=== PATIENT | male | born 1935 | race Caucasian/White ===

== ENCOUNTER → 2016-06-06 | Outpatient (CLI) | payer MEDICARE ==
[2016-06-06 09:46] LABS: CH 31.7; CHCM 30.9; HCT 42.6 % (39.0-53.0); HDW 2.21; HGB 13.2 gm/dL (13.0-17.5); Hypochromasia Slight; MCV 103.1 fL (80.0-100.0); Macrocytosis Slight; Mean Platelet Volume 6.9; RBC 4.14 m/uL (4.30-5.90); RDW 13.3 % (11.5-15.5)
--- NOTE | 2016-06-06 10:13 | XR ---
EXAMINATION TYPE: XR chest 2V DATE OF EXAM: 06/06/2016 9:24 AM COMPARISON: 12/10/2015 TECHNIQUE: PA and lateral views submitted. HISTORY: Wellness check FINDINGS: The lungs are clear and there is no pneumothorax, pleural effusion, or focal pneumonia. Sternotomy wires seen. Atherosclerotic change aorta. Biapical pleural thickening. Scoliosis and degenerative kira nge of the spine. Arthropathy of the shoulders. IMPRESSION: 1. No acute process.
[2016-06-06 10:36] LABS: Appearance,Urine Clear (Clear); Bilirubin,Urine Negative (Negative); Glucose,Urine (UA) Negative (Negative); Ketones,Urine Negative (Negative); Leukocyte Esterase,Urine Negative (Negative); Nitrite,Urine Negative (Negative); Protein,Urine Trace (Negative); Specific Gravity,Urine 1.019 (1.001-1.035); UA Billing (MACRO vs. MICRO) CHEM; Urobilinogen,Urine <2.0 mg/dL (<2.0)
[2016-06-06 12:10] LABS: ALT 36 U/L (21-72); AST 31 U/L (17-59); Alkaline Phosphatase 51 U/L (38-126); Anion Gap 8 mmol/L; Blood Urea Nitrogen 28 mg/dL (9-20); Calcium 9.5 mg/dL (8.4-10.2); Carbon Dioxide 27 mmol/L (22-30); Chloride 104 mmol/L (98-107); Cholesterol 137 mg/dL (<200); Glucose 86 mg/dL (74-99); HDL Cholesterol 70 mg/dL (40-60); Non-African American GFR(MDRD) >60 (>60 ml/min/1.73 sqM); Potassium 4.4 mmol/L (3.5-5.1); Sodium 139 mmol/L (137-145); Total Bilirubin 0.7 mg/dL (0.2-1.3); Total Protein 6.3 g/dL (6.3-8.2); Triglycerides 58 mg/dL (<150)
== END | disposition home or self-care (01) ==
LOC: LABWHC1 08:52
PROVIDERS: ATTEND Internal Medicine
DX: Z00.00 Encounter for general adult medical examination without abnormal findings (principal); I11.9 Hypertensive heart disease without heart failure; K21.0 Gastro-esophageal reflux disease with esophagitis; E03.9 Hypothyroidism, unspecified
CPT/HCPCS: 36415; 71020; 80053; 80061; 81003; 82272; 84439; 84443; 85027

== ENCOUNTER → 2016-06-24 | Outpatient (CLI) | payer MEDICARE | END | disposition home or self-care (01) | LOC: LABWHC1 10:24 | PROVIDERS: ATTEND Internal Medicine Interventional Cardiology | DX: E03.9 Hypothyroidism, unspecified (principal) | CPT/HCPCS: 36415; 84439; 84443 ==

== ENCOUNTER 2016-10-06 18:14 | Emergency (ER) | payer MEDICARE ==
[2016-10-06 18:27] VITALS: BP 161/70; PULSE 78; RESP 20; TEMP 98.2
--- NOTE | 2016-10-06 18:54 | ED ---
General Adult HPI - General Chief complaint: Skin/Abscess/Foreign Body Stated complaint: post op bleed head Time Seen by Provider: 10/06/16 18:28 Source: patient, RN notes reviewed Mode of arrival: wheelchair Limitations: no limitations - History of Present Illness Initial comments: 81-year-old male presents to the emergency department with a chief complaint of bleeding wound. The patient had a mole removed left-sided his face about a week ago and today he felt some blood on his bleeding. He stated he put bandage on it the did not feels if he stops they came in. At this time they state does appear that has stopped. He denies any falls traumas or injuries. Denies any pain. He was concerned due to the intensity thought that he should be seen.Patient denies any recent fever, chills, shortness of breath, chest pain , back pain, abdominal pain, nausea vomiting, numbness or tingling, dysuria or hematuria, constipation or diarrhea, headaches or visual changes, or any other current symptoms. - Related Data Home Medications Medication Instructions Recorded Confirmed Atorvastatin [Lipitor] 20 mg PO DAILY 09/08/15 10/06/16 Calcium Carb/Vitamin D3/Vit K1 1 tab PO BID 09/08/15 10/06/16 [Citracal Soft Chew] Cyanocobalamin [Vitamin B-12] 1,000 mcg PO DAILY 09/08/15 10/06/16 Ezetimibe [Zetia] 10 mg PO DAILY 09/08/15 10/06/16 Folic Acid 0.4 mg PO DAILY 09/08/15 10/06/16 Glucosam/Ender-Msm1/C/Beni/Bosw 1 tab PO DAILY 09/08/15 10/06/16 [Glucosamine-Chondroitin Tablet] Metoprolol Tartrate [Metoprolol 25 mg PO BID 09/08/15 10/06/16 Tartrate] Omeprazole [Omeprazole] 20 mg PO BID 09/08/15 10/06/16 Acetaminophen [Tylenol] 1,000 mg PO BID 12/10/15 10/06/16 Amiodarone [Cordarone] 200 mg PO DAILY 12/10/15 10/06/16 Aspirin [Adult Low Dose Aspirin EC] 81 mg PO DAILY 12/10/15 10/06/16 Donepezil [Aricept] 10 mg PO HS 12/10/15 10/06/16 Ferrous Sulfate [Feosol] 325 mg PO DAILY 12/10/15 10/06/16 Vitamin B Complex 1 cap PO DAILY 12/10/15 10/06/16 Previous Rx's Medication Instructions Recorded Apixaban [Eliquis] 2.5 mg PO BID #60 tab 09/22/15 Allergies Allergy/AdvReac Type Severity Reaction Status Date / Time No Known Allergies Allergy Verified 10/06/16 18:27 Review of Systems ROS Statement: Those systems with pertinent positive or pertinent negative responses have been documented in the HPI. ROS Other: All systems not noted in ROS Statement are negative. Past Medical History Past Medical History: Atrial Fibrillation, CVA/TIA, Hyperlipidemia, Hypertension , Myocardial Infarction ([place]) Additional Past Medical History / Comment(s): VSD - open heart surgery 2000, diverticular disease Last Myocardial Infarction Date:: 2000 History of Any Multi-Drug Resistant Organisms: None Reported Past Surgical History: Prostate Surgery Additional Past Surgical History / Comment(s): bilat. cataract surgery, partial prostate removal, hemorrhoidectomy, penile implant Past Anesthesia/Blood Transfusion Reactions: No Reported Reaction Past Psychological History: No Psychological Hx Reported Smoking Status: Former smoker Past Alcohol Use History: None Reported Past Drug Use History: None Reported General Exam Limitations: no limitations General appearance: alert, in no apparent distress Head exam: Present: other (This appears to area of recent removal of the left side of the cheek that does not appear to be bleeding at this time.) Eye exam: Present: normal appearance, PERRL, EOMI. Absent: scleral icterus, conjunctival injection, periorbital swelling Neck exam: Present: normal inspection. Absent: tenderness, meningismus, lymphadenopathy Respiratory exam: Present: normal lung sounds bilaterally. Absent: respiratory distress, wheezes, rales, rhonchi, stridor Cardiovascular Exam: Present: regular rate, normal rhythm, normal heart sounds. Absent: systolic murmur, diastolic murmur, rubs, gallop, clicks Neurological exam: Present: alert, oriented X3 Course Vital Signs 10/06/16 18:25 Temperature 98.2 F Pulse Rate 78 Respiratory 20 Rate Blood Pressure 161/70 O2 Sat by Pulse 98 Oximetry Medical Decision Making - Medical Decision Making 6-year-old male presents for wound left-sided face. At this time it has stopped bleeding. We discussed care of this. We discussed follow-up. We discussed return for hours all patient's questions. He stated he understood and he is given plan. All questions have been answered. He will be discharged home. Disposition Clinical Impression: Open facial wound Disposition: HOME SELF-CARE Condition: Stable Instructions: Acute Wound Care (ED) Additional Instructions: Please use medication as discussed. Please follow up with family doctor if symptoms have not improved over the next two days. Please return to the emergency room if your symptoms increase or worsen or for any other concerns. Referrals: Taco Matute MD [Primary Care Provider] - 1-2 days Time of Disposition: 18:53
== END 2016-10-06 19:07 | disposition home or self-care (01) ==
LOC: EC 18:14
DX: S01.402A Unspecified open wound of left cheek and temporomandibular area, initial encounter (principal); E78.5 Hyperlipidemia, unspecified; I10 Essential (primary) hypertension; I48.91 Unspecified atrial fibrillation; I25.2 Old myocardial infarction; Z87.891 Personal history of nicotine dependence; Z79.82 Long term (current) use of aspirin; Z79.899 Other long term (current) drug therapy; Z87.19 Personal history of other diseases of the digestive system; Z98.890 Other specified postprocedural states; X58.XXXA Exposure to other specified factors, initial encounter
CPT/HCPCS: 99283

== ENCOUNTER → 2017-07-24 | Outpatient (CLI) | payer MEDICARE ==
[2017-07-24 08:50] LABS: HGB 13.6 gm/dL (13.0-17.5); MCH 31.7 pg (25.0-35.0); MCHC 31.7 g/dL (31.0-37.0); MCV 100.1 fL (80.0-100.0); Mean Platelet Volume 6.9; Platelet Count 213 k/uL (150-450); RDW 13.3 % (11.5-15.5); WBC 6.8 k/uL (3.8-10.6)
[2017-07-24 09:02] LABS: ALT 36 U/L (21-72); AST 31 U/L (17-59); Albumin 3.9 g/dL (3.5-5.0); Alkaline Phosphatase 47 U/L (38-126); Anion Gap 10 mmol/L; Blood Urea Nitrogen 22 mg/dL (9-20); Calcium 9.2 mg/dL (8.4-10.2); Carbon Dioxide 28 mmol/L (22-30); Chloride 104 mmol/L (98-107); Cholesterol 149 mg/dL (<200); Glucose 93 mg/dL (74-99); HDL Cholesterol 68 mg/dL (40-60); LDL Cholesterol,Calculated 70 mg/dL (0-99); Potassium 4.4 mmol/L (3.5-5.1); Sodium 142 mmol/L (137-145); Total Bilirubin 0.9 mg/dL (0.2-1.3); Total Protein 6.2 g/dL (6.3-8.2); Triglycerides 55 mg/dL (<150)
[2017-07-24 09:17] LABS: T4, Free (Free Thyroxine) 1.83 ng/dL (0.78-2.19)
== END | disposition home or self-care (01) ==
LOC: LABWHC1 08:13
PROVIDERS: ATTEND Internal Medicine
DX: I25.10 Atherosclerotic heart disease of native coronary artery without angina pectoris (principal); I48.0 Paroxysmal atrial fibrillation; E78.2 Mixed hyperlipidemia; I11.9 Hypertensive heart disease without heart failure
CPT/HCPCS: 36415; 80053; 80061; 84439; 84443; 85027

== ENCOUNTER → 2017-07-30 | Outpatient (CLI) | payer MEDICARE ==
--- NOTE | 2017-07-30 11:40 | XR ---
EXAMINATION TYPE: XR chest 2V DATE OF EXAM: 07/30/2017 COMPARISON: 06/06/2016 TECHNIQUE: PA and lateral views submitted. HISTORY: Cough FINDINGS: Heart is enlarged and is atherosclerotic change aorta. Postsurgical changes are seen. There is a righ t upper lobe pulmonary nodule measuring 9 mm. Hyperinflation suggests COPD. Hypertrophic and degenera tive change of the spine noted. Atherosclerotic change of the vasculature. Patchy changes in the righ t upper lobe are noted. IMPRESSION: 1. Cardiomegaly and findings suggestive of COPD. There is a right upper lobe pulmonary nodule measuri ng 9 mm which is stable dating back to 2015. 2. There is patchy density in the right upper lobe and superior to the nodule could represent atelect asis or early infiltrate.
== END | disposition home or self-care (01) ==
LOC: RADXRMAIN 11:06
PROVIDERS: ATTEND Internal Medicine
DX: I51.7 Cardiomegaly (principal); R91.1 Solitary pulmonary nodule; R91.8 Other nonspecific abnormal finding of lung field; R05 Cough
CPT/HCPCS: 71046

== ENCOUNTER → 2018-07-27 | Outpatient (CLI) | payer MEDICARE ==
[2018-07-27 09:19] LABS: HCT 43.7 % (39.0-53.0); HGB 13.3 gm/dL (13.0-17.5); Hypochromasia Slight; MCH 30.7 pg (25.0-35.0); MCHC 30.5 g/dL (31.0-37.0); MCV 100.6 fL (80.0-100.0); Mean Platelet Volume 7.6; Platelet Count 270 k/uL (150-450); RBC 4.35 m/uL (4.30-5.90); RDW 12.9 % (11.5-15.5); WBC 5.6 k/uL (3.8-10.6)
--- NOTE | 2018-07-27 09:47 | XR ---
EXAMINATION TYPE: XR chest 2V DATE OF EXAM: 07/27/2018 COMPARISON: Prior chest x-ray 07/30/[address] dated 09/13/2010 HISTORY: Yearly physical TECHNIQUE: Frontal and lateral views of the chest are obtained. FINDINGS: Patient is post median sternotomy. Heart size is stable. No evident airspace disease, pneu mothorax, or pleural effusion. Elevation of right hemidiaphragm is stable. There is a stable nodular density in the right mid lung. Pulmonary vascularity and ashish are unchanged. There are coronary arter y calcifications. Aorta is dense. There are prominent lung volumes which may be indicative of underly ing COPD. IMPRESSION: No acute cardiopulmonary process. Stable lung nodule. Coronary artery disease.
[2018-07-27 16:36] LABS: ALT 26 U/L (10-49); AST 30 U/L (14-35); African American GFR (CKD) 89.9 (60.0-200.0); Albumin/Globulin Ratio 2.35 (1.60-3.17); Alkaline Phosphatase 46 U/L (41-126); Calcium 9.5 mg/dL (8.7-10.3); Carbon Dioxide 28.9 mmol/L (21.6-31.8); Chloride 106 mmol/L (96-109); Cholesterol 140 mg/dL (0-200); Globulin 1.7 g/dL (1.6-3.3); Glucose 89 mg/dL (70-110); Potassium 4.7 mmol/L (3.5-5.5); Sodium 141 mmol/L (135-145); Total Bilirubin 0.6 mg/dL (0.2-1.2); Total Protein 5.7 g/dL (6.2-8.2); Triglycerides <50.0 mg/dL (0.0-149.0); VLDL Calculation 9.98 mg/dL (5.00-40.00)
== END | disposition home or self-care (01) ==
LOC: LABWHC1 08:25
PROVIDERS: ATTEND Internal Medicine
DX: Z00.00 Encounter for general adult medical examination without abnormal findings (principal); I25.10 Atherosclerotic heart disease of native coronary artery without angina pectoris; I11.9 Hypertensive heart disease without heart failure; E78.2 Mixed hyperlipidemia; K21.0 Gastro-esophageal reflux disease with esophagitis; N40.1 Benign prostatic hyperplasia with lower urinary tract symptoms
CPT/HCPCS: 36415; 71046; 80053; 80061; 82272; 84153; 84439; 84443; 85027

== ENCOUNTER → 2019-11-12 | Outpatient (CLI) | payer MEDICARE ==
--- NOTE | 2019-11-12 12:42 | US ---
EXAMINATION TYPE: US abdomen complete DATE OF EXAM: 11/12/2019 COMPARISON: CLINICAL HISTORY: Z13.6 Encounter for screening for cardiovascular d. No reports no pain. No hx surg eries per patient. NPO. EXAM MEASUREMENTS: Liver Length: 13.1 cm Gallbladder Wall: 0.2 cm CBD: 0.5 cm Spleen: 7.7 cm Right Kidney: 8.9 x 5.2 x 5.1 cm Left Kidney: 9.5 x 5.0 x 5.2 cm Suboptimal exam due to overlying bowel gas Pancreas: Obscured by bowel gas Liver: wnl, scanned through ribs Gallbladder: wnl Evidence for sonographic Weathers's sign: neg CBD: wnl Spleen: limited visualization due to bowel gas Right Kidney: No hydronephrosis or masses seen Left Kidney: No hydronephrosis or masses seen Upper IVC: wnl Abd Aorta: Portions obscured by overlying bowel gas. No AAA seen in portions visualized. The liver is homogenous. The intrahepatic portion of the IVC and proximal abdominal aorta are within normal limits. There is no evidence of cholelithiasis. Common bile duct is unremarkable. The visu alized portions of the pancreas are homogenous. The spleen is unremarkable. Kidneys are symmetric a nd free of hydronephrosis. No renal lesions are seen. IMPRESSION: No distinct abnormality appreciated.
== END | disposition home or self-care (01) ==
LOC: RADUSWWP 12:02
PROVIDERS: ATTEND Internal Medicine
DX: Z13.6 Encounter for screening for cardiovascular disorders (principal)
CPT/HCPCS: 76700

== ENCOUNTER 2020-08-29 10:44 | Observation (INO) | payer MEDICARE ==
--- NOTE | 2020-08-29 11:23 | ED ---
Chest Pain HPI - General Chief Complaint: Chest Pain Stated Complaint: Chest Pain Time Seen by Provider: 08/29/20 11:02 Source: patient, family, RN notes reviewed Mode of arrival: wheelchair Limitations: no limitations - History of Present Illness Initial Comments: This 85-year-old male with a history of dementia history of VSD repair who is a poor historian but apparently started developing chest pain around 10 AM this morning while playing cards at program. He is not recall any of this he states he has no chest pain at this time he hasn't was however noted have a heart rate between 30s and 40s. No other complaints at this time he is not apparently had a chest pain recently. Information obtained to the patient's . MD Complaint: chest pain - Related Data Home Medications Medication Instructions Recorded Confirmed Atorvastatin [Lipitor] 20 mg PO DAILY 09/08/15 08/29/20 Cyanocobalamin [Vitamin B-12] 1,000 mcg PO Q7D 09/08/15 08/29/20 Ezetimibe [Zetia] 10 mg PO DAILY 09/08/15 08/29/20 Folic Acid 0.4 mg PO DAILY 09/08/15 08/29/20 Acetaminophen [Tylenol] 500 mg PO BID 12/10/15 08/29/20 Donepezil [Aricept] 10 mg PO AC-SUPPER 12/10/15 08/29/20 Ferrous Sulfate [Feosol] 325 mg PO AC-SUPPER 12/10/15 08/29/20 Vitamin B Complex 1 cap PO DAILY 12/10/15 08/29/20 Ginkgo Biloba 500 mg PO DAILY 08/29/20 08/29/20 Memantine HCl 10 mg PO BID 08/29/20 08/29/20 Metoprolol Tartrate [Lopressor] 25 mg PO DAILY 08/29/20 08/29/20 Mirabegron [Myrbetriq] 50 mg PO DAILY 08/29/20 08/29/20 Moxifloxacin HCl [Moxifloxacin] 1 drop BOTH EYES TID 08/29/20 08/29/20 Omeprazole [PriLOSEC] 40 mg PO MOWEFR 08/29/20 08/29/20 Previous Rx's Medication Instructions Recorded Apixaban [Eliquis] 2.5 mg PO BID #60 tab 08/12/16 Allergies Allergy/AdvReac Type Severity Reaction Status Date / Time No Known Allergies Allergy Verified 08/29/20 11:41 Review of Systems ROS Statement: Those systems with pertinent positive or pertinent negative responses have been documented in the HPI. ROS Other: All systems not noted in ROS Statement are negative. EKG Findings - EKG Results: EKG: interpreted by JOSIE, sinus rhythm (Sinus bradycardia rate 49 TX interval 208 QRS 88 QT/QTC 462/417 evidence of old inferior infarct nonspecific ST-T wave configuration) Past Medical History Past Medical History: Atrial Fibrillation, CVA/TIA, Hyperlipidemia, Hypertension, Myocardial Infarction ([place]) Additional Past Medical History / Comment(s): VSD - open heart surgery 2000, diverticular disease Last Myocardial Infarction Date:: 2000 History of Any Multi-Drug Resistant Organisms: None Reported Past Surgical History: Prostate Surgery Additional Past Surgical History / Comment(s): bilat. cataract surgery, partial prostate removal, hemorrhoidectomy, penile implant Past Anesthesia/Blood Transfusion Reactions: No Reported Reaction Past Psychological History: No Psychological Hx Reported Smoking Status: Never smoker Past Alcohol Use History: None Reported Past Drug Use History: None Reported General Exam - General Exam Comments Initial Comments: Is a well-developed asthenic appearing male who is awake alert Limitations: no limitations General appearance: alert, in no apparent distress Head exam: Present: atraumatic, normocephalic, normal inspection Eye exam: Present: normal appearance, PERRL, EOMI. Absent: scleral icterus, conjunctival injection, periorbital swelling ENT exam: Present: normal exam, mucous membranes moist Neck exam: Present: normal inspection. Absent: tenderness, meningismus, lymphadenopathy Respiratory exam: Present: normal lung sounds bilaterally, other (Mr. Horan scar well-healed). Absent: respiratory distress, wheezes, rales, rhonchi, stridor Cardiovascular Exam: Present: normal rhythm, bradycardia, normal heart sounds. Absent: systolic murmur, diastolic murmur, rubs, gallop, clicks GI/Abdominal exam: Present: soft, normal bowel sounds. Absent: distended, tenderness, guarding, rebound, rigid Extremities exam: Present: normal inspection, full ROM, normal capillary refill. Absent: tenderness, pedal edema, joint swelling, calf tenderness Back exam: Present: normal inspection Neurological exam: Present: alert, altered, CN II-XII intact Psychiatric exam: Present: normal affect, normal mood Skin exam: Present: warm, dry, intact, normal color. Absent: rash Course Vital Signs 08/29/20 08/29/20 08/29/20 10:47 11:59 12:18 Temperature 97.5 F L Pulse Rate 46 L 52 L 53 L Respiratory 18 18 20 Rate Blood Pressure 129/67 112/55 126/62 O2 Sat by Pulse 98 95 96 Oximetry 08/29/20 14:00 Temperature Pulse Rate 51 L Respiratory 20 Rate Blood Pressure 151/63 O2 Sat by Pulse 99 Oximetry Chest Pain MDM - MDM Imaging reviewed no acute findings I did discuss findings with the patient and his . Patient has been asymptomatic since he arrived however the chest pain with the near syncopal episode is of concern I did discuss case with Dr. Camara the patient will be admitted with cardiology consultation Disposition Clinical Impression: Chest pain, Near syncope, Dementia Disposition: ADMITTED IP TO THIS [facility] Condition: Stable Referrals: Cristina Alonso MD [Primary Care Provider] - 1-2 days
[2020-08-29 11:24] LABS: Basophils % (A) 1 %; Eosinophils # (A) 0.2 k/uL (0-0.7); Eosinophils % (A) 3 %; HCT 42.7 % (39.0-53.0); HGB 13.5 gm/dL (13.0-17.5); Lymphocytes # (A) 2.2 k/uL (1.0-4.8); Lymphocytes % (A) 28 %; MCHC 31.7 g/dL (31.0-37.0); MCV 101.1 fL (80.0-100.0); Mean Platelet Volume 7.9; Monocytes # (A) 0.7 k/uL (0-1.0); Monocytes % (A) 9 %; Neutrophils # (A) 4.5 k/uL (1.3-7.7); Neutrophils % (A) 57 %; Platelet Count 275 k/uL (150-450); RBC 4.23 m/uL (4.30-5.90); RDW 12.2 % (11.5-15.5); WBC 7.9 k/uL (3.8-10.6)
[2020-08-29 11:44] LABS: INR 1.1 (<1.2); Partial Thromboplastin Time 24.5 sec (22.0-30.0); Prothrombin Time 11.5 sec (9.0-12.0)
[2020-08-29 11:45] LABS: Albumin 4.2 g/dL (3.5-5.0); Calcium 9.8 mg/dL (8.4-10.2); Potassium 4.4 mmol/L (3.5-5.1); Total Bilirubin 0.7 mg/dL (0.2-1.3); Total Protein 6.6 g/dL (6.3-8.2)
--- NOTE | 2020-08-29 12:26 | XR ---
EXAMINATION TYPE: XR chest 2V DATE OF EXAM: 08/29/2020 COMPARISON: Chest x-ray 07/27/2018 HISTORY: Chest pain TECHNIQUE: Frontal and lateral views of the chest are obtained. FINDINGS: There is no focal air space opacity, pleural effusion, or pneumothorax seen. The cardiac silhouette size is stable, possibly borderline enlarged. Patient is post median sternotomy. Aorta is dense. Probable calcified nodule present in the right midlung. The osseous structures are intact, po ssible spinal curvature. There are coronary artery calcifications. IMPRESSION: No acute cardiopulmonary process. Stable postop changes, cardiomegaly, coronary artery d isease.
[2020-08-29] MEDS ORDERED: NITROGLYCERIN SL TABS 0.4 MG TAB SUBLINGUAL PRN (14:18)
[2020-08-29] MEDS ORDERED: CYANOCOBALAMIN 500 MCG TAB PO SCH (14:30)
--- NOTE | 2020-08-29 14:49 | P.HPIM ---
<Anderson Downing - Last Filed: 08/29/20 16:02> History of Present Illness H&P Date: 08/29/20 History of Presenting Illness: Patient is a very pleasant 85-year-old male with a past medical history of CAD with previous LA, atrial fibrillation on anticoagulation with Eliquis, VSD with repair, hypertension, hyperlipidemia, and dementia with baseline mentation being A&O 2. Patient presented to the emergency department with a chief complaint of chest pain and possible near syncopal episode. Patient's at bedside states that her was at adult daycare/dementia center and while sitting at the table playing cards he reportedly grabbed his chest complaining of chest pain and then became very pale and did not respond. Patient's stated that staff informed her that he stayed awake throughout entire event but was not able to respond. Patient's states staff called her and she went to pick him up and brought him to the hospital for further evaluation. Patient was seen and fully evaluated in the emergency department with CBC and CMP unremarkable. Troponins 2 negative at less than 0.012. EKG showing sinus bradycardia at 49 bpm with T- wave inversion in inferior, lateral, and anterior leads I, II, aVL, aVF, V3, V4, V5, and V6 which is unchanged from previous EKG obtained on 12/10/15 with the exception of rate. Chest x-ray negative for acute cardiopulmonary process. Patient is being admitted under our services with consultation to cardiology. Upon assessment of bedside, patient resting comfortably. He currently denies having any complaints of pain or discomfort. He denies headache, lightheadedness, dizziness, chest pain, palpitations, shortness of breath, abdominal pain, nausea, vomiting, or any other complaints. Patient does not recall events. Review of systems: Pertinent positives and negatives as discussed in HPI, a complete review of systems was performed and all other systems are negative. Physical exam: Vital signs reviewed and stable. General: Nontoxic, no distress and appears stated age. Derm: Skin warm and dry, normal coloration for ethnicity. Head: Atraumatic, normocephalic and symmetric. Eyes: no lid lag and anicteric sclera Mouth: no lip lesions, mucus membranes moist Cardiovascular: regular rate and rhythm with normal S1S2, no murmur, positive posterior tibial pulses bilaterally, and cap refill < 2 seconds. Lungs: Respirations even, regular, and unlabored on room air. Lungs CTA bilaterally, no rhonchi, no rales, no wheezing, and no accessory muscle usage. Abdominal: soft, nontender to palpation, no guarding, no appreciable organomegaly Ext: ROM intact. No gross muscle atrophy, no edema, no contractures Neuro: Speech clear, face symmetrical and CN II-XII grossly intact with no noted focal neuro deficits Psych: Alert and oriented to person and place only, confused to time and situation which is baseline mentation per at bedside. Appropriate and pleasant affect. Assessment and Plan of Care: Chest pain in patient with history of CAD -Troponins 2 negative at less than 0.012. -EKG showing sinus bradycardia at 49 bpm with T-wave inversion in inferior, lateral, and anterior leads I, II, aVL, aVF, V3, V4, V5, and V6 which is unchanged from previous EKG obtained on 12/10/15 with the exception of rate. -Chest x-ray negative for acute cardiopulmonary process -Cardiology consult -Echocardiogram -Telemetry monitoring -Trend troponins -Cardiac diet -Aspirin, atorvastatin, and metoprolol -Continuation of anticoagulant with Eliquis. -Lipid profile and Hgb A1c with a.m. labs. Atrial fibrillation -Continue anticoagulation with Eliquis. Hypertension -Monitor vital signs and continue daily medication regimen with metoprolol. Hyperlipidemia -Continue daily medication regimen with atorvastatin. -Heart healthy diet Dementia -Provide safe and supportive care and redirection as needed. -Fall precautions -Continue daily medication regimen. The patient is admitted with an anticipated less than 2 midnight stay for evaluation of chest pain. Surrogate decision-maker: Patient's , Ariadne Garcia CODE STATUS: Full code DVT prophylaxis: Eliquis Discussed with: Patient, RN, and patient's at bedside. Anticipated discharge date: 1-[address]: Home A total of 45 minutes was spent on the care of this complex patient more than 50% of the time was spent in counseling and care coordination. Past Medical History Past Medical History: Atrial Fibrillation, CVA/TIA, Hyperlipidemia, Hypertension, Myocardial Infarction ([place]) Additional Past Medical History / Comment(s): VSD - open heart surgery 2000, diverticular disease Last Myocardial Infarction Date:: 2000 History of Any Multi-Drug Resistant Organisms: None Reported Past Surgical History: Prostate Surgery Additional Past Surgical History / Comment(s): bilat. cataract surgery, partial prostate removal, hemorrhoidectomy, penile implant Past Anesthesia/Blood Transfusion Reactions: No Reported Reaction Past Psychological History: No Psychological Hx Reported Smoking Status: Never smoker Past Alcohol Use History: None Reported Past Drug Use History: None Reported Medications and Allergies Home Medications Medication Instructions Recorded Confirmed Type Atorvastatin [Lipitor] 20 mg PO DAILY 09/08/15 08/29/20 History Cyanocobalamin [Vitamin B-12] 1,000 mcg PO Q7D 09/08/15 08/29/20 History Ezetimibe [Zetia] 10 mg PO DAILY 09/08/15 08/29/20 History Folic Acid 0.4 mg PO DAILY 09/08/15 08/29/20 History Apixaban [Eliquis] 2.5 mg PO BID #60 tab 09/22/15 08/29/20 Rx Acetaminophen [Tylenol] 500 mg PO BID 12/10/15 08/29/20 History Donepezil [Aricept] 10 mg PO AC-SUPPER 12/10/15 08/29/20 History Ferrous Sulfate [Feosol] 325 mg PO AC-SUPPER 12/10/15 08/29/20 History Vitamin B Complex 1 cap PO DAILY 12/10/15 08/29/20 History Ginkgo Biloba 500 mg PO DAILY 08/29/20 08/29/20 History Memantine HCl 10 mg PO BID 08/29/20 08/29/20 History Metoprolol Tartrate [Lopressor] 25 mg PO DAILY 08/29/20 08/29/20 History Mirabegron [Myrbetriq] 50 mg PO DAILY 08/29/20 08/29/20 History Moxifloxacin HCl [Moxifloxacin] 1 drop BOTH EYES TID 08/29/20 08/29/20 History Omeprazole [PriLOSEC] 40 mg PO MOWEFR 08/29/20 08/29/20 History Allergies Allergy/AdvReac Type Severity Reaction Status Date / Time No Known Allergies Allergy Verified 08/29/20 11:41 Physical Exam Vitals: Vital Signs Temp Pulse Resp BP Pulse Ox 08/29/20 14:00 51 L 20 151/63 99 08/29/20 12:18 53 L 20 126/62 96 08/29/20 11:59 52 L 18 112/55 95 08/29/20 10:47 97.5 F L 46 L 18 129/67 98 Intake and Output 08/28/20 08/29/20 08/29/20 22:59 06:59 14:59 Other: Weight 68.039 kg Results CBC & Chem 7: 08/29/20 11:12 08/29/20 11:12 Labs: Abnormal Lab Results - Last 24 Hours (Table) 08/29/20 08/29/20 Range/Units 11:12 11:12 RBC 4.23 L (4.30-5.90) m/uL MCV 101.1 H (80.0-100.0) fL BUN 21 H (9-20) mg/dL Glucose 112 H (74-99) mg/dL <Mandie Chavarria - Last Filed: 08/29/20 18:19> History of Present Illness Patient seen and examined independently. Patient was also seen by Anderson Downing NP and case was discussed. I am in agreement with subjective, physical exam, assessment and plan as written above and amended below. present at time of evaluation. Patient was undergoing echocardiogram. He typically sees Dr. NERI Tejeda is cardiology. He last saw him in May or June. He did not have any cardiac medication changes at that time. His only new medication is an eyedrop. General: [non toxic], [no distress], [appears at stated age] Derm: [warm], [dry] Head: [atraumatic], [normocephalic], [symmetric] Eyes: [EOMI], [no lid lag], [anicteric sclera] Mouth: [no lip lesion], [mucus membranes moist] Psych: Awake, appropriate affect Physical Exam Osteopathic Statement: *. No significant issues noted on an osteopathic structural exam other than those noted in the History and Physical/Consult. Vitals: Vital Signs Temp Pulse Resp BP Pulse Ox 08/29/20 15:07 98.6 F 57 L 20 151/70 97 08/29/20 14:00 51 L 20 151/63 99 08/29/20 12:18 53 L 20 126/62 96 08/29/20 11:59 52 L 18 112/55 95 08/29/20 10:47 97.5 F L 46 L 18 129/67 98 Intake and Output 08/29/20 08/29/20 08/29/20 06:59 14:59 22:59 Other: Weight 68.039 kg Results CBC & Chem 7: 08/29/20 11:12 08/29/20 11:12 Labs: Abnormal Lab Results - Last 24 Hours (Table) 08/29/20 08/29/20 Range/Units 11:12 11:12 RBC 4.23 L (4.30-5.90) m/uL MCV 101.1 H (80.0-100.0) fL BUN 21 H (9-20) mg/dL Glucose 112 H (74-99) mg/dL
[2020-08-29] MEDS ORDERED: DONEPEZIL 10 MG TAB PO SCH (17:30)
[2020-08-29] MEDS ORDERED: FERROUS SULFATE 325 MG TAB PO SCH (17:30)
--- NOTE | 2020-08-29 18:02 | ECHOF ---
Referral Reason:CP, hx of VSD with repair MEASUREMENTS -------- HEIGHT: 162.6 cm WEIGHT: 68.0 kg BP: 151/70 RVIDd: 2.9 cm (< 3.3) IVSd: 1.1 cm (0.6 - 1.1) LVIDd: 5.1 cm (3.9 - 5.3) LVPWd: 1.2 cm (0.6 - 1.1) IVSs: 1.6 cm LVIDs: 3.7 cm LVPWs: 1.7 cm LA Diam: 4.0 cm (2.7 - 3.8) Ao Diam: 3.8 cm (2.0 - 3.7) AV Cusp: 2.2 cm (1.5 - 2.6) MV EXCURSION: 13.883 mm (> 18.000) MV EF SLOPE: 48 mm/s (70 - 150) EPSS: 1.2 cm MV E Hay: 0.86 m/s MV DecT: 248 ms MV A Hay: 0.85 m/s MV E/A Ratio: 1.01 AR PHT: 491 ms RAP: 5.00 mmHg RVSP: 38.62 mmHg FINDINGS -------- Sinus rhythm. This was a technically adequate study. Suboptimal image quality - poor subcostal views. The left ventricular size is normal. There is borderline concentric left ventricular hypertrophy. Overall left ventricular systolic function is mild-moderately impaired with, an EF between 40 - 45 % . Mid inferior LV wall motion is hypokinetic. Apical inferior LV wall motion is hypokinetic. The right ventricle is normal in size. The left atrium is normal in size. The right atrium is normal in size. Interatrial and interventricular septum intact. No VSD noted There is mild aortic valve sclerosis. There is [id number] aortic regurgitation. The mitral valve leaflets are mildly thickened. Mild mitral annular calcification present. There is trace to mild mitral regurgitation. Mild tricuspid regurgitation present. There is mild pulmonary hypertension. The right ventricular systolic pressure, as measured by Doppler, is 38.62mmHg. Trace/mild (physiologic) pulmonic regurgitation. The aortic root is dilated measuring 3.8cm. IVC Not well visulized. There is no pericardial effusion. CONCLUSIONS -------- 1. The left ventricular size is normal. 2. There is borderline concentric left ventricular hypertrophy. 3. Overall left ventricular systolic function is mild-moderately impaired with, an EF between 40 - 45 %. 4. Mid inferior LV wall motion is hypokinetic. 5. Apical inferior LV wall motion is hypokinetic. 6. There is mild aortic valve sclerosis. 7. There is [id number] aortic regurgitation. 8. The mitral valve leaflets are mildly thickened. 9. Mild mitral annular calcification present. 10. There is trace to mild mitral regurgitation. 11. Mild tricuspid regurgitation present. 12. There is mild pulmonary hypertension. 13. The right ventricular systolic pressure, as measured by Doppler, is 38.62mmHg. 14. Trace/mild (physiologic) pulmonic regurgitation. 15. The aortic root is dilated measuring 3.8cm. 16. There is no pericardial effusion. EMISSIONS TESTING TECHNICIAN: Karla Fishcer RDCS
[2020-08-29] MEDS: SODIUM CHLORIDE 0.9% 1,000 ML IV SCH (19:19)
[2020-08-29] MEDS: MOXIFLOXACIN HCL 0.5% DROPS 3 ML BTL BOTH EYES SCH (19:19)
[2020-08-29] MEDS: ACETAMINOPHEN TAB 500 MG TAB PO SCH (22:07)
[2020-08-29] MEDS: APIXABAN 2.5 MG TABLET PO SCH (22:08)
[2020-08-29] MEDS: MEMANTINE 10 MG TAB PO SCH (22:08)
[2020-08-30] MEDS: MOXIFLOXACIN HCL 0.5% DROPS 3 ML BTL BOTH EYES SCH ×2 (00:15→08:42)
[2020-08-30] MEDS: SODIUM CHLORIDE 0.9% 1,000 ML IV SCH ×2 (00:52→11:08)
[2020-08-30 04:12] VITALS: PULSE 66
[2020-08-30] MEDS ORDERED: PANTOPRAZOLE 40 MG TABLET PO SCH (07:30)
[2020-08-30 07:50] VITALS: RESP 16; TEMP 97.5
[2020-08-30] MEDS: ACETAMINOPHEN TAB 500 MG TAB PO SCH (08:38)
[2020-08-30] MEDS: APIXABAN 2.5 MG TABLET PO SCH (08:40)
[2020-08-30] MEDS: MEMANTINE 10 MG TAB PO SCH (08:41)
[2020-08-30] MEDS ORDERED: ASPIRIN 325 MG TAB PO SCH (09:00)
[2020-08-30] MEDS ORDERED: METOPROLOL TARTRATE 25 MG TAB PO SCH (09:00)
[2020-08-30] MEDS ORDERED: ATORVASTATIN 20 MG TAB PO SCH (09:00)
[2020-08-30] MEDS ORDERED: FOLIC ACID 1 MG TAB PO SCH (09:00)
[2020-08-30] MEDS ORDERED: EZETIMIBE 10 MG TAB PO SCH (09:00)
[2020-08-30] MEDS ORDERED: Mirabegron [Myrbetriq] PO SCH (09:00)
[2020-08-30] MEDS ORDERED: FOLIC ACID-VIT B COMPLEX-VIT C 1 CAP PO SCH (09:00)
[2020-08-30] MEDS ORDERED: GINKGO BILOBA 500 MG PO SCH (09:00)
[2020-08-30] MEDS ORDERED: amLODIPine 5 MG TAB PO SCH (09:00)
--- NOTE | 2020-08-30 10:46 | P.CRDCN ---
History of Present Illness History of present illness: HISTORY OF PRESENTING ILLNESS This is a pleasant 85-year-old male past medical history significant for coronary artery disease status post bypass grafting, repair of ventricular septal defect, paroxysmal atrial fibrillation, TIA, hypertension, dyslipidemia, chronic systolic heart failure, ischemic cardiomyopathy, paroxysmal atrial fibrillation on Eliquis and advanced dementia. He follows in the office with Dr. Tejeda. We have been asked to see in consultation for chest pain. The patient is seen and examined resting comfortably lying flat in bed in no acute distress. He is a poor historian, information is obtained from the medical record and nursing staff. ER documentation indicates he was playing cards yesterday morning when he developed chest discomfort. According to the his heart rate at the time was between 30 and 40. He is currently chest pain-free. EKG and telemetry tracings reviewed. He has been consistently sinus mechanism with heart rate mostly in the 50s. EKG reveals sinus bradycardia heart rate of 49 T-wave inversions noted in the anterior lateral leads. Consistent with previous EKGs. No acute changes appreciated. Chest x-ray is negative for an acute cardiopulmonary process. Telemetry tracings reveal sinus bradycardia with no significant pauses. Echocardiogram obtained reveals impaired LV systolic function with ejection fraction 40-45%, mid inferior and apical inferior wall motion hypokinesia, mild to moderate aortic regurgitation and mild tricuspid regurgitation. Consistent with previous echoes, no changes in wall motion abn ormalities. Laboratory data reviewed, WBC 7.9, hemoglobin 13.5, platelets 275, sodium 138, potassium 4.4, creatinine 0.88, magnesium 2.0, cardiac enzymes negative 3, NT proBNP 890. Current daily cardiac medications include Eliquis 2.5 mg twice a day, atorvastatin 20 mg daily, Lopressor 25 mg daily and Zetia 10 mg daily. REVIEW OF SYSTEMS At the time of my exam: CONSTITUTIONAL: Denies fever or chills. CARDIOVASCULAR: Denies chest pain, shortness of breath, orthopnea, PND or palpitations. RESPIRATORY: Denies cough. GASTROINTESTINAL: Denies abdominal pain, diarrhea, constipation, nausea or v omiting. MUSCULOSKELETAL: Denies myalgias. NEUROLOGIC: Denies numbness, tingling, headacbe or weakness. ENDOCRINE: Denies fatigue, weight change, polydipsia or polyurina. GENITOURINARY: Denies burning, hematuria or urgency with micturation. HEMATOLOGIC: Denies history of anemia or bleeding. PHYSICAL EXAMINATION Blood pressure 170/78 heart rate 66 afebrile and maintaining oxygen saturation on room air. CONSTITUTIONAL: No apparent distress. HEENT: Head is normocephalic. Pupils are equal, round. Sclerae anicteric. Mucous membranes of the mouth are moist. No JVD. No carotid bruit. CHEST EXAMINATION: Lungs are clear to auscultation. No chest wall tenderness is noted on palpation or with deep breathing. HEART EXAMINATION: Regular rate and rhythm. S1, S2 heard. Systolic ejection murmur at the base, no gallops or rub. ABDOMEN: Soft, nontender. Positive bowel sounds. EXTREMITIES: 2+ peripheral pulses, no lower extremity edema and no calf tenderness. NEUROLOGIC EXAMINATION: Patient is awake, alert to self. ASSESSMENT Chest pain Sinus bradycardia Paroxysmal atrial fibrillation on Eliquis, currently maintaining sinus mechanism Hypertension Chronic systolic heart failure, clinically euvolemic Ischemic cardiomyopathy, chronic Coronary artery disease status post bypass grafting and VSD repair Dyslipidemia Advanced dementia PLAN Telemetry tracings reviewed, he is persistently maintaining sinus mechanism with sinus bradycardia noted. We will discontinue his beta matthew and add amlod ipine 5 mg daily for hypertension management. An acute coronary event has been ruled out. Echocardiogram reviewed, no acute changes from previous echocardiograms. Continue eliquis for thromboembolic protection. Recommend maximizing his medical therapy, no aggressive invasive testing to be done at this time. Follow up with Dr. Tejeda upon discharge. Thank you kindly for this consultation. Nurse Practitioner note has been reviewed, I agree with a documented findings and plan of care. Patient was seen and examined. Past Medical History Past Medical History: Atrial Fibrillation, CVA/TIA, Hyperlipidemia, Hypertension, Myocardial Infarction ([place]) Additional Past Medical History / Comment(s): VSD - open heart surgery 2000, div erticular disease Last Myocardial Infarction Date:: 2000 History of Any Multi-Drug Resistant Organisms: None Reported Past Surgical History: Prostate Surgery Additional Past Surgical History / Comment(s): bilat. cataract surgery, partial prostate removal, hemorrhoidectomy, penile implant Past Anesthesia/Blood Transfusion Reactions: No Reported Reaction Past Psychological History: No Psychological Hx Reported Smoking Status: Former smoker Past Alcohol Use History: None Reported Past Drug Use History: None Reported Medications and Allergies Home Medications Medication Instructions Recorded Confirmed Type Atorvastatin [Lipitor] 20 mg PO DAILY 09/08/15 08/29/20 History Cyanocobalamin [Vitamin B-12] 1,000 mcg PO Q7D 09/08/15 08/29/20 History Ezetimibe [Zetia] 10 mg PO DAILY 09/08/15 08/29/20 History Folic Acid 0.4 mg PO DAILY 09/08/15 08/29/20 History Apixaban [Eliquis] 2.5 mg PO BID #60 tab 09/22/15 08/29/20 Rx Acetaminophen [Tylenol] 500 mg PO BID 12/10/15 08/29/20 History Donepezil [Aricept] 10 mg PO AC-SUPPER 12/10/15 08/29/20 History Ferrous Sulfate [Feosol] 325 mg PO AC-SUPPER 12/10/15 08/29/20 History Vitamin B Complex 1 cap PO DAILY 12/10/15 08/29/20 History Ginkgo Biloba 500 mg PO DAILY 08/29/20 08/29/20 History Memantine HCl 10 mg PO BID 08/29/20 08/29/20 History Metoprolol Tartrate [Lopressor] 25 mg PO DAILY 08/29/20 08/29/20 History Mirabegron [Myrbetriq] 50 mg PO DAILY 08/29/20 08/29/20 History Moxifloxacin HCl [Moxifloxacin] 1 drop BOTH EYES TID 08/29/20 08/29/20 History Omeprazole [PriLOSEC] 40 mg PO MOWEFR 08/29/20 08/29/20 History Allergies Allergy/AdvReac Type Severity Reaction Status Date / Time No Known Allergies Allergy Verified 08/29/20 11:41 Physical Exam Vitals: Vital Signs Temp Pulse Pulse Resp BP BP Pulse Ox 08/30/20 07:00 97.5 F L 66 16 170/78 08/30/20 02:26 97.7 F 66 18 183/72 96 08/29/20 20:19 98.2 F 56 L 16 163/83 97 08/29/20 19:20 98.0 F 59 L 20 153/67 95 08/29/20 15:07 98.6 F 57 L 20 151/70 97 08/29/20 14:00 51 L 20 151/63 99 08/29/20 12:18 53 L 20 126/62 96 08/29/20 11:59 52 L 18 112/55 95 08/29/20 10:47 97.5 F L 46 L 18 129/67 98 Intake and Output 08/29/20 08/30/20 08/30/20 22:59 06:59 14:59 Other: # Voids 0 Weight 68.039 kg Results 08/29/20 11:12 08/29/20 11:12 Cardiac Enzymes 08/29/20 08/29/20 08/29/20 Range/Units 11:12 11:12 14:31 AST 29 (17-59) U/L Troponin I <0.012 <0.012 (0.000-0.034) ng/mL 08/29/20 Range/Units 17:17 AST (17-59) U/L Troponin I <0.012 (0.000-0.034) ng/mL Coagulation 08/29/20 Range/Units 11:12 PT 11.5 (9.0-12.0) sec APTT 24.5 (22.0-30.0) sec CBC 08/29/20 Range/Units 11:12 WBC 7.9 (3.8-10.6) k/uL RBC 4.23 L (4.30-5.90) m/uL Hgb 13.5 (13.0-17.5) gm/dL Hct 42.7 (39.0-53.0) % Plt Count 275 (150-450) k/uL Comprehensive Metabolic Panel 08/29/20 Range/Units 11:12 Sodium 138 (137-145) mmol/L Potassium 4.4 (3.5-5.1) mmol/L Chloride 104 (98-107) mmol/L Carbon Dioxide 27 (22-30) mmol/L BUN 21 H (9-20) mg/dL Creatinine 0.88 (0.66-1.25) mg/dL Glucose 112 H (74-99) mg/dL Calcium 9.8 (8.4-10.2) mg/dL AST 29 (17-59) U/L ALT 16 (4-49) U/L Alkaline Phosphatase 51 (38-126) U/L Total Protein 6.6 (6.3-8.2) g/dL Albumin 4.2 (3.5-5.0) g/dL Current Medications Generic Name Dose Route Start Last Admin Trade Name Freq PRN Reason Stop Dose Admin Acetaminophen 500 mg 08/29/20 21:00 08/29/20 22:07 Acetaminophen Tab 500 Mg Tab PO 500 mg BID WISAM Administration Apixaban 2.5 mg 08/29/20 21:00 08/29/20 22:08 Apixaban 2.5 Mg Tablet PO 09/04/20 14:21 2.5 mg BID WISAM Administration Protocol Atorvastatin Calcium 20 mg 08/30/20 09:00 Atorvastatin 20 Mg Tab PO DAILY WISAM Cyanocobalamin 1,000 mcg 08/29/20 14:30 08/29/20 19:19 Cyanocobalamin 500 Mcg Tab PO 1,000 mcg Q7D WISAM Administration Donepezil HCl 10 mg 08/29/20 17:30 08/29/20 19:19 Donepezil 10 Mg Tab PO 10 mg AC-SUPPER WISAM Administration Ezetimibe 10 mg 08/30/20 09:00 Ezetimibe 10 Mg Tab PO DAILY WISAM Ferrous Sulfate 325 mg 08/29/20 17:30 08/29/20 19:19 Ferrous Sulfate 325 Mg Tab PO 325 mg AC-SUPPER WISAM Administration Folic Acid 0.5 mg 08/30/20 09:00 Folic Acid 1 Mg Tab PO DAILY [facility] Sodium Chloride 1,000 mls @ 100 mls/hr 08/29/20 14:30 08/30/20 00:52 Saline 0.9% IV 100 mls/hr .Q10H WISAM Administration Memantine 10 mg 08/29/20 21:00 08/29/20 22:08 Memantine 10 Mg Tab PO 10 mg BID WISAM Administration Moxifloxacin HCl 1 drops 08/29/20 16:00 08/30/20 00:15 Moxifloxacin Hcl 0.5% Drops 3 Ml Btl BOTH EYES 09/03/20 23:00 1 drops TID WISAM Administration Multivit/Ca Carb/B Cmplx/FA/Prenat 1 each 08/30/20 09:00 Folic Acid-Vit B Complex-Vit C 1 Cap PO DAILY [facility]ISAM Nitroglycerin 0.4 mg 08/29/20 14:18 Nitroglycerin Sl Tabs 0.4 Mg Tab SUBLINGUAL Q5M PRN Chest Pain Mirabegron [ 50 mg 08/30/20 09:00 Myrbetriq] PO DAILY [facility] Pantoprazole Sodium 40 mg 08/30/20 07:30 Pantoprazole 40 Mg Tablet PO MOWEFR WISAM Intake and Output 08/29/20 08/30/20 08/30/20 22:59 06:59 14:59 Other: # Voids 0 Weight 68.039 kg 08/29/20 11:12 08/29/20 11:12
--- NOTE | 2020-08-30 11:33 | P.DS ---
Providers Date of admission: 08/29/20 14:26 Expected date of discharge: 08/30/20 Attending physician: Mandie Chavarria DO Consults: 08/29/20 14:18 Consult Physician Urgent Consulting Provider: Frankie Warner Consult Reason/Comments: Chest pain, near syncope Do you want consulting provider notified?: Yes Primary care physician: Cristina Alonso MD Hospital Course: Discharge Diagnosis: Chest pain in patient with history of CAD, acute coronary event ruled out Sinus bradycardia Paroxysmal Atrial fibrillation VSD with repair Hypertension Hyperlipidemia Dementia Hospital Course: Patient is a very pleasant 85-year-old male with a past medical history of CAD with previous MO, atrial fibrillation on anticoagulation with Eliquis, VSD with repair, hypertension, hyperlipidemia, and dementia with baseline mentation being A&O 2. Patient presented to the emergency department with a chief complaint of chest pain and possible near syncopal episode. Patient's at bedside states that her was at adult daycare/dementia center and while sitting at the table playing cards he reportedly grabbed his chest complaining of chest pain and then became very pale and did not respond. Patient's stated that staff informed her that he stayed awake throughout entire event but was not able to respond. Patient's states staff called her and she went to pick him up and brought him to the hospital for further evaluation. Patient was seen and fully evaluated in the emergency department with CBC and CMP unremarkable. Troponins 2 negative at less than 0.012. EKG showing sinus bradycardia at 49 bpm with T- wave inversion in inferior, lateral, and anterior leads I, II, aVL, aVF, V3, V4, V5, and V6 which is unchanged from previous EKG obtained on 12/10/15 with the exception of rate. Chest x-ray negative for acute cardiopulmonary process. Patient is being admitted under our services with consultation to cardiology. Troponins were further trended them are negative 3. Echocardiogram was completed showing a mild to moderately impaired ejection fraction of 40-45% with left ventricular wall hypokinesis, mild pulmonary hypertension, and mild to moderate aortic regurgitation. Patient remains free from chest pain or any other complaints throughout admission. Telemetry tracings reviewed by cardiology reportedly revealing sinus bradycardia with no significant pauses. An acute coronary event has been ruled out, patient started on Norvasc and to continue Eliquis for thromboembolic protection and cardiology recommending patient to follow-up in office with Dr. Tejeda in 2 weeks. Patient medically stable for discharge home at this time. Physical exam: Upon assessment of bedside, patient resting comfortably. He currently denies having any complaints of pain or discomfort. He remains alert to person and place only. He denies headache, lightheadedness, dizziness, chest pain, palpitations, shortness of breath, abdominal pain, nausea, vomiting, or any other complaints. Patient does not recall events. Vital signs reviewed and stable. General: Nontoxic, no distress and appears stated age. Derm: Skin warm and dry, normal coloration for ethnicity. Head: Atraumatic, normocephalic and symmetric. Eyes: no lid lag and anicteric sclera Mouth: no lip lesions, mucus membranes moist Cardiovascular: regular rate and rhythm with normal S1S2, no murmur, positive posterior tibial pulses bilaterally, and cap refill < 2 seconds. Lungs: Respirations even, regular, and unlabored on room air. Lungs CTA bilaterally, no rhonchi, no rales, no wheezing, and no accessory muscle usage. Abdominal: soft, nontender to palpation, no guarding, no appreciable organomegaly Ext: ROM intact. No gross muscle atrophy, no edema, no contractures Neuro: Speech clear, face symmetrical and CN II-XII grossly intact with no noted focal neuro deficits. Psych: Alert and oriented to person and place only, confused to time and situation which is baseline mentation per at bedside. Appropriate and pleasant affect. A total of 45 minutes of time were spent preparing this complex discharge summary. Patient Condition at Discharge: Stable Plan - Discharge Summary Discharge Rx Participant: No New Discharge Prescriptions: New amLODIPine [Norvasc] 5 mg PO DAILY 30 Days #30 tab Continue Folic Acid 0.4 mg PO DAILY Cyanocobalamin [Vitamin B-12] 1,000 mcg PO Q7D Ezetimibe [Zetia] 10 mg PO DAILY Atorvastatin [Lipitor] 20 mg PO DAILY Apixaban [Eliquis] 2.5 mg PO BID #60 tab Acetaminophen [Tylenol] 500 mg PO BID Ferrous Sulfate [Iron (65 MG Elemental)] 325 mg PO AC-SUPPER Donepezil [Aricept] 10 mg PO AC-SUPPER Vitamin B Complex 1 cap PO DAILY Ginkgo Biloba 500 mg PO DAILY Omeprazole [PriLOSEC] 40 mg PO MOWEFR Metoprolol Tartrate [Lopressor] 25 mg PO DAILY Memantine HCl 10 mg PO BID Mirabegron [Myrbetriq] 50 mg PO DAILY Moxifloxacin HCl [Moxifloxacin] 1 drop BOTH EYES TID Discharge Medication List Atorvastatin [Lipitor] 20 mg PO DAILY 09/08/15 [History] Cyanocobalamin [Vitamin B-12] 1,000 mcg PO Q7D 09/08/15 [History] Ezetimibe [Zetia] 10 mg PO DAILY 09/08/15 [History] Folic Acid 0.4 mg PO DAILY 09/08/15 [History] Apixaban [Eliquis] 2.5 mg PO BID #60 tab 09/22/15 [Rx] Acetaminophen [Tylenol] 500 mg PO BID 12/10/15 [History] Donepezil [Aricept] 10 mg PO AC-SUPPER 12/10/15 [History] Ferrous Sulfate [Iron (65 MG Elemental)] 325 mg PO AC-SUPPER 12/10/15 [History] Vitamin B Complex 1 cap PO DAILY 12/10/15 [History] Ginkgo Biloba 500 mg PO DAILY 08/29/20 [History] Memantine HCl 10 mg PO BID 08/29/20 [History] Metoprolol Tartrate [Lopressor] 25 mg PO DAILY 08/29/20 [History] Mirabegron [Myrbetriq] 50 mg PO DAILY 08/29/20 [History] Moxifloxacin HCl [Moxifloxacin] 1 drop BOTH EYES TID 08/29/20 [History] Omeprazole [PriLOSEC] 40 mg PO MOWEFR 08/29/20 [History] amLODIPine [Norvasc] 5 mg PO DAILY 30 Days #30 tab 08/30/20 [Rx] Follow up Appointment(s)/Referral(s): Cristina Alonso MD [Primary Care Provider] - 1-2 days Jn Tejeda MD [STAFF PHYSICIAN] - 2 Weeks Activity/Diet/Wound Care/Special Instructions: Activity: As tolerated, patient requires 24-hour supervision secondary to advanced dementia. Diet: Continue heart healthy diet. Special Instructions: Please continue your daily cardiac medication regimen with Eliquis, Norvasc, atorvastatin,and zetia. It is important to follow-up with your primary care doctor, Dr. Maskoni, in 1-2 days for a posthospitalization follow-up visit and with cardiology as recommended in 2 weeks. Discharge Disposition: HOME SELF-CARE
[2020-08-30 12:07] LABS: Chol/HDL Ratio 2.91; LDL Cholesterol,Calculated 67.6 mg/dL (0.0-131.0); VLDL Calculation 14.4 mg/dL (5.00-40.00)
[2020-08-30 14:49] VITALS: BP 133/57
== END 2020-08-30 16:04 | disposition home or self-care (01) ==
LOC: EC 10:44 → 1SOBS 14:26 → 6NMEDSUR 15:21
PROVIDERS: ADMIT Internal Medicine; ATTEND Internal Medicine
DX: R07.89 Other chest pain (principal); R00.1 Bradycardia, unspecified; I48.0 Paroxysmal atrial fibrillation; I11.0 Hypertensive heart disease with heart failure; I50.22 Chronic systolic (congestive) heart failure; Q21.0 Ventricular septal defect; E78.5 Hyperlipidemia, unspecified; F03.90 Unspecified dementia, unspecified severity, without behavioral disturbance, psychotic disturbance, mood disturbance, and anxiety; I25.10 Atherosclerotic heart disease of native coronary artery without angina pectoris; I25.5 Ischemic cardiomyopathy; I27.20 Pulmonary hypertension, unspecified; I25.2 Old myocardial infarction; I35.1 Nonrheumatic aortic (valve) insufficiency; K57.90 Diverticulosis of intestine, part unspecified, without perforation or abscess without bleeding; Z79.01 Long term (current) use of anticoagulants; Z79.899 Other long term (current) drug therapy; Z98.41 Cataract extraction status, right eye; Z98.42 Cataract extraction status, left eye; Z87.891 Personal history of nicotine dependence; Z95.1 Presence of aortocoronary bypass graft; Z87.74 Personal history of (corrected) congenital malformations of heart and circulatory system; Z86.73 Personal history of transient ischemic attack (TIA), and cerebral infarction without residual deficits; Z87.19 Personal history of other diseases of the digestive system
CPT/HCPCS: 93005 ×2; 99285; 36415; 93306; 83880; 80061; 80053; 82550; 83690; 83735; 84484; 85025; 85610; 85730; 71046; G0378 ×2

== ENCOUNTER → 2022-05-31 | Outpatient (CLI) | payer MEDICARE ==
[2022-05-31 13:28] LABS: Appearance,Urine Clear (Clear); Bilirubin,Urine 1+ (Negative); Blood,Urine Negative (Negative); Color,Urine Dark Yellow; Glucose,Urine (UA) Negative (Negative); Ketones,Urine Trace (Negative); Leukocyte Esterase,Urine Negative (Negative); Mucus,Urine Many /hpf; Nitrite,Urine Negative (Negative); Protein,Urine 2+ (Negative); RBC,Urine 2 /hpf (0-5); Specific Gravity,Urine 1.038 (1.001-1.035); Squamous Epithelial Cell,Urine <1 /hpf (0-4); WBC,Urine 1 /hpf (0-5)
[2022-05-31 19:48] LABS: African American GFR (CKD) 88.7 (60.0-200.0); BUN/Creat Ratio 29.54 Ratio (12.00-20.00); Blood Urea Nitrogen 25.7 mg/dL (9.0-27.0); Calcium 9.4 mg/dL (8.7-10.3); Carbon Dioxide 25.8 mmol/L (20.0-27.5); Chloride 104 mmol/L (96-109); Glucose 115 mg/dL (70-110); Non-African American GFR(CKD) 76.5 (60.0-200.0); Potassium 4.8 mmol/L (3.5-5.5); Sodium 142 mmol/L (135-145)
[2022-05-31 20:39] LABS: HCT 43.2 % (39.6-50.0); HGB 12.8 g/dL (13.0-17.0); MCH 30.5 pg (27.0-32.0); MCHC 29.6 g/dL (32.0-37.0); MCV 103.1 fL (80.0-97.0); Mean Platelet Volume 10.2 fL (9.5-12.2); NRBC Per 100 WBC 0 /100 WBCS (0.0-0.0); Platelet Count 283 X 10*3/uL (140-440); RBC 4.19 X 10*6/uL (4.40-5.60); RDW 12.6 % (11.5-14.5)
[2022-05-31 22:23] LABS: Acanthocytes 2+; Basophils # (M) 0 X 10*3/uL (0.00-0.10); Elliptocytes 2+; Eosinophils # (M) 0 X 10*3/uL (0.04-0.35); Lymphocytes # (M) 1.33 X 10*3/uL (0.90-5.00); Monocytes # (M) 1.33 X 10*3/uL (0.20-1.00); Neutrophils # (M) 10.64 X 10*3/uL (2.00-8.90); Neutrophils % (M) 80 %
== END | disposition home or self-care (01) ==
LOC: LABWHC1 11:44
PROVIDERS: ATTEND Psychiatry & Neurology Neurology
DX: R41.82 Altered mental status, unspecified (principal)
CPT/HCPCS: 36415; 80048; 81001; 82607; 84443; 85025

== ENCOUNTER 2023-01-29 15:52 | Observation (INO) | payer MEDICARE ==
[2023-01-29 18:57] LABS: Basophils # (A) 0.1 k/uL (0-0.2); Basophils % (A) 0 %; Eosinophils # (A) 0.1 k/uL (0-0.7); Eosinophils % (A) 0 %; HCT 44.2 % (39.0-53.0); HGB 13.9 gm/dL (13.0-17.5); Lymphocytes # (A) 0.8 k/uL (1.0-4.8); Lymphocytes % (A) 4 %; MCH 31.1 pg (25.0-35.0); MCHC 31.5 g/dL (31.0-37.0); MCV 98.9 fL (80.0-100.0); Monocytes # (A) 0.8 k/uL (0-1.0); Monocytes % (A) 4 %; Neutrophils # (A) 17.4 k/uL (1.3-7.7); Neutrophils % (A) 91 %; Platelet Count 292 k/uL (150-450); RBC 4.47 m/uL (4.30-5.90); RDW 12.9 % (11.5-15.5); WBC 19.3 k/uL (3.8-10.6)
[2023-01-29 19:05] LABS: ALT 19 U/L (4-49); AST 27 U/L (17-59); African American GFR (CKD) >90 (>60 ml/min/1.73 sqM); Albumin 4.3 g/dL (3.5-5.0); Alkaline Phosphatase 73 U/L (38-126); Anion Gap 12 mmol/L; Blood Urea Nitrogen 23 mg/dL (9-20); Calcium 10.2 mg/dL (8.4-10.2); Carbon Dioxide 25 mmol/L (22-30); Chloride 99 mmol/L (98-107); Glucose 112 mg/dL (74-99); Non-African American GFR(CKD) 80 (>60 ml/min/1.73 sqM); Potassium 4.8 mmol/L (3.5-5.1); Sodium 136 mmol/L (137-145); Total Bilirubin 0.8 mg/dL (0.2-1.3)
[2023-01-29 19:09] LABS: INR 1.1 (<1.2); Partial Thromboplastin Time 23.5 sec (22.0-30.0)
--- NOTE | 2023-01-29 20:17 | ED ---
General Adult HPI - General Chief complaint: Fall Stated complaint: Fall Time Seen by Provider: 01/29/23 17:04 Source: patient, RN notes reviewed Mode of arrival: ambulatory Limitations: no limitations - History of Present Illness Initial comments: 87-year-old male presents to the emergency department for chief complaint of fall. Patient has a past medical history of dementia. His was visiting him today at [facility]. She went into his room she found him lying on the ground in the bathroom. Patient is on Eliquis. He is unsure if he lost consciousness. Patient reports pain in his low back. He denies chest pain, shortness of breath. - Related Data Home Medications Medication Instructions Recorded Confirmed Atorvastatin [Lipitor] 20 mg PO DAILY 09/08/15 08/29/20 Cyanocobalamin [Vitamin B-12] 1,000 mcg PO Q7D 09/08/15 08/29/20 Ezetimibe [Zetia] 10 mg PO DAILY 09/08/15 08/29/20 Folic Acid 0.4 mg PO DAILY 09/08/15 08/29/20 Acetaminophen [Tylenol] 500 mg PO BID 12/10/15 08/29/20 Donepezil [Aricept] 10 mg PO AC-SUPPER 12/10/15 08/29/20 Ferrous Sulfate [Iron (65 MG 325 mg PO AC-SUPPER 12/10/15 08/29/20 Elemental)] Vitamin B Complex 1 cap PO DAILY 12/10/15 08/29/20 Ginkgo Biloba 500 mg PO DAILY 08/29/20 08/29/20 Memantine HCl 10 mg PO BID 08/29/20 08/29/20 Mirabegron [Myrbetriq] 50 mg PO DAILY 08/29/20 08/29/20 Moxifloxacin HCl [Moxifloxacin 1 drop BOTH EYES TID 08/29/20 08/29/20 0.5%] Omeprazole [PriLOSEC] 40 mg PO MOWEFR 08/29/20 08/29/20 Previous Rx's Medication Instructions Recorded Apixaban [Eliquis] 2.5 mg PO BID #60 tab 09/22/15 amLODIPine [Norvasc] 5 mg PO DAILY 30 Days #30 tab 08/30/20 Allergies Allergy/AdvReac Type Severity Reaction Status Date / Time No Known Allergies Allergy Verified 01/29/23 16:35 Review of Systems ROS Statement: Those systems with pertinent positive or pertinent negative responses have been documented in the HPI. ROS Other: All systems not noted in ROS Statement are negative. Past Medical History Past Medical History: Atrial Fibrillation, CVA/TIA, Hyperlipidemia, Hypertension, Myocardial Infarction ([place]) Additional Past Medical History / Comment(s): VSD - open heart surgery 2000, diverticular disease Last Myocardial Infarction Date:: 2000 History of Any Multi-Drug Resistant Organisms: None Reported Past Surgical History: Prostate Surgery Additional Past Surgical History / Comment(s): bilat. cataract surgery, partial prostate removal, hemorrhoidectomy, penile implant Past Anesthesia/Blood Transfusion Reactions: No Reported Reaction Past Psychological History: No Psychological Hx Reported Smoking Status: Former smoker Past Alcohol Use History: None Reported Past Drug Use History: None Reported General Exam Limitations: no limitations General appearance: alert, in no apparent distress Head exam: Present: atraumatic, normocephalic, normal inspection Eye exam: Present: normal appearance, EOMI. Absent: PERRL (miosis) ENT exam: Present: normal exam, mucous membranes moist, normal external ear exam Neck exam: Present: normal inspection. Absent: tenderness, meningismus, lymphadenopathy Respiratory exam: Present: normal lung sounds bilaterally. Absent: respiratory distress, wheezes, rales, rhonchi, stridor Cardiovascular Exam: Present: regular rate, normal rhythm, normal heart sounds. Absent: systolic murmur, diastolic murmur, rubs, gallop, clicks GI/Abdominal exam: Present: soft, tenderness (suprapubic, lower abdomen), normal bowel sounds. Absent: distended, guarding, rebound, rigid Back exam: Present: normal inspection. Absent: tenderness Neurological exam: Present: alert. Absent: oriented X3 (Ox2) Psychiatric exam: Present: normal affect, normal mood Skin exam: Present: warm, dry, intact, normal color. Absent: rash Course Vital Signs 01/29/23 01/29/23 01/29/23 16:30 17:03 18:00 Temperature 98.4 F Pulse Rate 57 L 79 73 Respiratory 18 25 H 19 Rate Blood Pressure 81/48 143/54 O2 Sat by Pulse 99 Oximetry 01/29/23 01/29/23 01/30/23 19:00 20:21 01:00 Temperature Pulse Rate 79 81 90 Respiratory 30 H 16 14 Rate Blood Pressure 143/82 141/62 154/69 O2 Sat by Pulse 95 97 Oximetry Medical Decision Making - Medical Decision Making Was pt. sent in by a medical professional or institution ([facility], [employer], urgent care, hospital, or detention...) When possible be specific @ -No Did you speak to anyone other than the patient for history (EMS, parent, family, police, friend...)? What history was obtained from this source @ -No Did you review nursing and triage notes (agree or disagree)? Why? @ -I reviewed and agree with nursing and triage notes Were old charts reviewed (outside hosp., previous admission, EMS record, old EKG, old radiological studies, urgent care reports/EKG's, detention records)? Report findings @ -His EKG was compared to prior EKG on file and is found to be fairly co mparable Differential Diagnosis (chest pain, altered mental status, abdominal pain women, abdominal pain men, vaginal bleeding, weakness, fever, dyspnea, syncope, headache, dizziness, GI bleed, back pain, seizure, CVA, palpatations, mental health, musculoskeletal)? @ -Fall, head injury, urinary tract infection, failure to thrive, this list is not all inclusive EKG interpreted by me (3pts min.). @ -EKG@1703, much artifact present appears to be sinus rhythm rate 70 to, QRS 84, QTQTc 236919 X-rays interpreted by me (1pt min.). @ -None done CT interpreted by me (1pt min.). @ -CT brain and C-spine shows age-related atrophy and chronic small vessel disease without acute intracranial process, no acute fractures of the C-spine CT abdomen and pelvis shows bilateral thickening U/S interpreted by me (1pt. min.). @ -None done What testing was considered but not performed or refused? (CT, X-rays, U/S, labs)? Why? @ -None What meds were considered but not given or refused? Why? @ -None Did you discuss the management of the patient with other professionals (professionals i.e. [facility], [employer], lab, RT, psych nurse, social media specialist, tobacco educator, teacher, army officer, case therapist)? Give summary @ -Management discussed with Dr. Avlarez with [facility] who is accepting of the admission Was smoking cessation discussed for >3mins.? @ -No Was critical care preformed (if so, how long)? @ -No Were there social determinants of health that impacted care today? How? (Homelessness, low income, unemployed, alcoholism, drug addiction, transportation, low edu. Level, literacy, decrease access to med. care, half-way, rehab)? @ -No Was there de-escalation of care discussed even if they declined (Discuss DNR or withdrawal of care, Hospice)? DNR status @ -No What co-morbidities impacted this encounter? (DM, HTN, Smoking, COPD, CAD, Cancer, CVA, ARF, Chemo, Hep., AIDS, mental health diagnosis, sleep apnea, morbid obesity)? @ -dementia Was patient admitted / discharged? Hospital course, mention meds given and route, prescriptions, significant lab abnormalities, going to OR and other perti nent info. @ -admitted. Patient presented to the emergency department for chief complaint of fall. Patient fell in his bathroom today. CT brain and C-spine obtained which shows no acute intracranial process, no acute fractures. CT abdomen and pelvis shows bladder wall thickening. Patient had lab laboratory studies obtained. CBC shows leukocytosis at 1923; coagulation studies within normal limits. CMP shows sodium 136, potassium 4.8; creatinine 0.79; UA shows negative nitrite, negative leukocyte esterase, 1+ protein, 2+ ketones likely due to dehydration. Patient appears generally weak and overall more confused than he typically is. The patient will be admitted for further evaluation. His discussed with Dr. Alvarez who is accepting of the admission. Patient and family understands the above plan. Patient stable at time of admission. Case discussed with Dr. Xie Undiagnosed new problem with uncertain prognosis? @ -No Drug Therapy requiring intensive monitoring for toxicity (Heparin, Nitro, Insulin, Cardizem)? @ -No Were any procedures done? @ -No Diagnosis/symptom? @ -leukocytosis, generalized weakness Acute, or Chronic, or Acute on Chronic? @ -acute Uncomplicated (without systemic symptoms) or Complicated (systemic symptoms)? @ -uncomplicated Side effects of treatment? @ -No Exacerbation, Progression, or Severe Exacerbation? @ -No Poses a threat to life or bodily function? How? (Chest pain, [place], [place], pneumonia, PE, COPD, DKA, ARF, appy, cholecystitis, CVA, Diverticulitis, Homicidal, Suicidal, threat to staff... and all critical care pts) @ -No - Lab Data Result diagrams: 01/29/23 18:07 01/29/23 18:07 Lab Results 01/29/23 01/29/23 01/29/23 Range/Units 18:07 18:07 18:07 WBC 19.3 H (3.8-10.6) k/uL RBC 4.47 (4.30-5.90) m/uL Hgb 13.9 (13.0-17.5) gm/dL Hct 44.2 (39.0-53.0) % MCV 98.9 (80.0-100.0) fL MCH 31.1 (25.0-35.0) pg MCHC 31.5 (31.0-37.0) g/dL RDW 12.9 (11.5-15.5) % Plt Count 292 (150-450) k/uL MPV 8.0 Neutrophils % 91 % Lymphocytes % 4 % Monocytes % 4 % Eosinophils % 0 % Basophils % 0 % Neutrophils # 17.4 H (1.3-7.7) k/uL Lymphocytes # 0.8 L (1.0-4.8) k/uL Monocytes # 0.8 (0-1.0) k/uL Eosinophils # 0.1 (0-0.7) k/uL Basophils # 0.1 (0-0.2) k/uL PT 12.0 (10.0-12.5) sec INR 1.1 (<1.2) APTT 23.5 (22.0-30.0) sec Sodium 136 L (137-145) mmol/L Potassium 4.8 (3.5-5.1) mmol/L Chloride 99 (98-107) mmol/L Carbon Dioxide 25 (22-30) mmol/L Anion Gap 12 mmol/L BUN 23 H (9-20) mg/dL Creatinine 0.79 (0.66-1.25) mg/dL Est GFR (CKD-EPI)AfAm >90 (>60 ml/min/1.73 sqM) Est GFR (CKD-EPI)NonAf 80 (>60 ml/min/1.73 sqM) Glucose 112 H (74-99) mg/dL Calcium 10.2 (8.4-10.2) mg/dL Total Bilirubin 0.8 (0.2-1.3) mg/dL AST 27 (17-59) U/L ALT 19 (4-49) U/L Alkaline Phosphatase 73 (38-126) U/L Total Protein 7.0 (6.3-8.2) g/dL Albumin 4.3 (3.5-5.0) g/dL Urine Color Urine Appearance (Clear) Urine pH (5.0-8.0) Ur Specific [place] (1.001-1.035) Urine Protein (Negative) Urine Glucose (UA) (Negative) Urine Ketones (Negative) Urine Blood (Negative) Urine Nitrite (Negative) Urine Bilirubin (Negative) Urine Urobilinogen (<2.0) mg/dL Ur Leukocyte Esterase (Negative) Urine RBC (0-5) /hpf Urine WBC (0-5) /hpf Hyaline Casts (0-2) /lpf Urine Mucus (None) /hpf 01/30/23 Range/Units 00:30 WBC (3.8-10.6) k/uL RBC (4.30-5.90) m/uL Hgb (13.0-17.5) gm/dL Hct (39.0-53.0) % MCV (80.0-100.0) fL MCH (25.0-35.0) pg MCHC (31.0-37.0) g/dL RDW (11.5-15.5) % Plt Count (150-450) k/uL MPV Neutrophils % % Lymphocytes % % Monocytes % % Eosinophils % % Basophils % % Neutrophils # (1.3-7.7) k/uL Lymphocytes # (1.0-4.8) k/uL Monocytes # (0-1.0) k/uL Eosinophils # (0-0.7) k/uL Basophils # (0-0.2) k/uL PT (10.0-12.5) sec INR (<1.2) APTT (22.0-30.0) sec Sodium (137-145) mmol/L Potassium (3.5-5.1) mmol/L Chloride (98-107) mmol/L Carbon Dioxide (22-30) mmol/L Anion Gap mmol/L BUN (9-20) mg/dL Creatinine (0.66-1.25) mg/dL Est GFR (CKD-EPI)AfAm (>60 ml/min/1.73 sqM) Est GFR (CKD-EPI)NonAf (>60 ml/min/1.73 sqM) Glucose (74-99) mg/dL Calcium (8.4-10.2) mg/dL Total Bilirubin (0.2-1.3) mg/dL AST (17-59) U/L ALT (4-49) U/L Alkaline Phosphatase (38-126) U/L Total Protein (6.3-8.2) g/dL Albumin (3.5-5.0) g/dL Urine Color Yellow Urine Appearance Clear (Clear) Urine pH 8.0 (5.0-8.0) Ur Specific [place] 1.020 (1.001-1.035) Urine Protein 1+ H (Negative) Urine Glucose (UA) Negative (Negative) Urine Ketones 2+ H (Negative) Urine Blood Negative (Negative) Urine Nitrite Negative (Negative) Urine Bilirubin Negative (Negative) Urine Urobilinogen <2.0 (<2.0) mg/dL Ur Leukocyte Esterase Negative (Negative) Urine RBC 2 (0-5) /hpf Urine WBC <1 (0-5) /hpf Hyaline Casts 4 H (0-2) /lpf Urine Mucus Rare H (None) /hpf Disposition Clinical Impression: Leukocytosis, Fall Disposition: ADMITTED IP TO THIS [facility] Condition: Stable Is patient prescribed a controlled substance at d/c from ED?: No
--- NOTE | 2023-01-29 20:49 | CT ---
EXAMINATION TYPE: CT brain florine wo con DATE OF EXAM: 01/29/2023 COMPARISON: 09/14/2015 HISTORY: ams, fall CT DLP: 1447.[address] of the brain was performed. The ventricles, basal cisterns and sulci overlying the cerebral convexities demonstrate mild enlargem ent. Decreased attenuation left cerebellum image 18 however there is limiting streak artifact. There is no evidence for intracranial hemorrhage or sulcal effacement. There is decreased attenuatio n about the periventricular white matter and deep white matter of both cerebral hemispheres, compatib le with chronic small vessel ischemia. No mass effects are seen. If symptoms persist consider MRI. Osseous calvarium is intact. IMPRESSION: 1. Age related atrophic and chronic small vessel ischemic change without acute intracranial process seen at this time.Decreased attenuation left cerebellum image 18 however there is limiting streak art ifact. CT Cervical Spine: Unenhanced CT of the cervical spine was performed with bone and soft tissue window settings submitted . Coronal and sagittal reconstruction is obtained. There is normal alignment and prevertebral soft tissues. No evidence for acute cervical fracture . Scattered degenerative disc disease and spondylosis. Biapical scarring. IMPRESSION: 1. No evidence for acute fracture or subluxation of the cervical spine.
--- NOTE | 2023-01-29 21:01 | CT ---
EXAMINATION TYPE: CT abdomen pelvis wo con DATE OF EXAM: 01/29/2023 COMPARISON: 09/14/2015 HISTORY: abdominal pain CT DLP: 654.7 mGycm Examination of the solid and hollow viscera is limited given the lack of contrast. Patient motion durán its the examination. FINDINGS: LUNG BASES: No evidence for nodule. No evidence for infiltrate. LIVER/GB: The gallbladder is unremarkable. No space-occupying hepatic lesion. PANCREAS: No pancreatic mass identified. No inflammatory process seen. SPLEEN: No evidence for splenomegaly. No intrasplenic lesions seen. ADRENALS: No adrenal nodules identified. No evidence for thickening. KIDNEYS: No evidence for renal mass. No nephrolithiasis. No hydronephrosis. Urinary bladder wall thic kening may reflect underlying cystitis. Renal vascular calcifications. BOWEL: Appendix has a normal appearance. No evidence of bowel obstruction. No inflammatory process. S igmoid diverticulosis without diverticulitis. Lymph nodes: No evidence for adenopathy greater than 1 cm. Abdominal aorta: Atheromatous changes seen. No evidence for aneurysm. Genital organs: No significant abnormality. Other: No significant abnormality. He now prosthetic reservoir noted with anterior to the urinary cheryl dder. Postoperative changes right hip. Scoliosis and degenerative change lumbar spine no fracture see n. IMPRESSION: 1. Urinary bladder wall thickening may reflect cystitis. 2. Sigmoid diverticulosis without diverticulitis. 3. Examination patient motion. No obvious acute inflammatory process.
[2023-01-30] MEDS ORDERED: NALOXONE 0.4 MG/ML 1 ML VIAL IV PRN (00:49)
[2023-01-30] MEDS ORDERED: ACETAMINOPHEN TAB 325 MG TAB PO PRN (00:49)
[2023-01-30 01:17] LABS: Appearance,Urine Clear (Clear); Bilirubin,Urine Negative (Negative); Blood,Urine Negative (Negative); Color,Urine Yellow; Glucose,Urine (UA) Negative (Negative); Hyaline Casts,Urine 4 /lpf (0-2); Ketones,Urine 2+ (Negative); Leukocyte Esterase,Urine Negative (Negative); Mucus,Urine Rare /hpf; Nitrite,Urine Negative (Negative); Protein,Urine 1+ (Negative); RBC,Urine 2 /hpf (0-5); Urobilinogen,Urine <2.0 mg/dL (<2.0); WBC,Urine <1 /hpf (0-5)
--- NOTE | 2023-01-30 03:35 | P.HPIM ---
History of Present Illness H&P Date: 01/30/23 [facility] 87[facility] of [facility], paroxysmal A. fib on Eliquis, CAD, hypertension, hyperlipidemia, who was sent to the emergency room after a fall. As per the ED provider and the EMS documentation, the patient was found on the floor by his who was visiting him. Had reported that he was walking from the restroom when he tripped and fell. Unclear if there was loss of consciousness. History was limited as the patient was confused at the time of interview, oriented only to self and place which is his baseline. The patient had reported even weaker than usual and somewhat also more confused. Patient denied any active complaints. He denied experiencing pain, chest discomfort, shortness of breath, nausea, vomiting, abdominal pain. In the emergency room a CT head and cervical spine was unremarkable with CT abdomen and pelvis also unremarkable. Laboratory evaluation revealed leukocytosis of 19.3, sodium 136, BUN 23, glucose 112, with an unremarkable UA. ED documentation reviewed and case discussed with ED provider. Review of systems: Pertinent positives and negatives as discussed in HPI, a complete review of systems was performed and all other systems are negative. Physical examination: Vital signs reviewed General: non toxic, no distress, appears at stated age, normal weight Derm: no unusual rashes/lesions, warm Head: atraumatic, normocephalic, symmetric Eyes: EOMI, no lid lag, anicteric sclera, pupils equal round reactive to light ENT: Nose and ears atraumatic Neck: No cervical lymphadenopathy, trachea midline, supple Mouth: no lip lesion, mucus membranes moist Cardiovascular: S1S2 reg, no murmur, positive dorsalis pedis pulse bilateral, no edema Lungs: CTA bilateral, no rhonchi, no rales, no accessory muscle use Abdominal: soft, nontender to palpation, no guarding Ext: muscle strength 4 out of 5 in all 4 extremities grossly, no gross muscle atrophy, no contractures, Neuro: CN II-XI grossly intact, no gross focal neuro deficits Psych: Alert, oriented to person and place only, not oriented to time Assessment: Generalized weakness with mechanical fall Chronic conditions: A. fib, CAD, hypertension, hyperlipidemia Imaging: In the emergency room a CT head and cervical spine was unremarkable with CT abdomen and pelvis also unremarkable. Data Review: Laboratory evaluation revealed leukocytosis of 19.3, sodium 136, BUN 23, glucose 112, with an unremarkable UA Plan: PT consult Fall precautions Continue with home medications once reconciled DVT prophylaxis: Eliquis The patient is admitted with an anticipated less than 2 midnight stay for evaluation of debility CODE STATUS: Full Code Discussed with: Patient Anticipated discharge place: [facility] Past Medical History Past Medical History: Atrial Fibrillation, CVA/TIA, Hyperlipidemia, Hypertension, Myocardial Infarction ([place]) Additional Past Medical History / Comment(s): VSD - open heart surgery 2000, diverticular disease Last Myocardial Infarction Date:: 2000 History of Any Multi-Drug Resistant Organisms: None Reported Past Surgical History: Prostate Surgery Additional Past Surgical History / Comment(s): bilat. cataract surgery, partial prostate removal, hemorrhoidectomy, penile implant Past Anesthesia/Blood Transfusion Reactions: No Reported Reaction Past Psychological History: No Psychological Hx Reported Smoking Status: Former smoker Past Alcohol Use History: None Reported Past Drug Use History: None Reported Medications and Allergies Home Medications Medication Instructions Recorded Confirmed Type Atorvastatin [Lipitor] 20 mg PO DAILY 09/08/15 08/29/20 History Cyanocobalamin [Vitamin B-12] 1,000 mcg PO Q7D 09/08/15 08/29/20 History Ezetimibe [Zetia] 10 mg PO DAILY 09/08/15 08/29/20 History Folic Acid 0.4 mg PO DAILY 09/08/15 08/29/20 History Apixaban [Eliquis] 2.5 mg PO BID #60 tab 09/22/15 08/29/20 Rx Acetaminophen [Tylenol] 500 mg PO BID 12/10/15 08/29/20 History Donepezil [Aricept] 10 mg PO AC-SUPPER 12/10/15 08/29/20 History Ferrous Sulfate [Iron (65 MG 325 mg PO AC-SUPPER 12/10/15 08/29/20 History Elemental)] Vitamin B Complex 1 cap PO DAILY 12/10/15 08/29/20 History Ginkgo Biloba 500 mg PO DAILY 08/29/20 08/29/20 History Memantine HCl 10 mg PO BID 08/29/20 08/29/20 History Mirabegron [Myrbetriq] 50 mg PO DAILY 08/29/20 08/29/20 History Moxifloxacin HCl [Moxifloxacin 1 drop BOTH EYES TID 08/29/20 08/29/20 History 0.5%] Omeprazole [PriLOSEC] 40 mg PO MOWEFR 08/29/20 08/29/20 History amLODIPine [Norvasc] 5 mg PO DAILY 30 Days #30 tab 08/30/20 Rx Allergies Allergy/AdvReac Type Severity Reaction Status Date / Time No Known Allergies Allergy Verified 01/29/23 16:35 Physical Exam Vitals: Vital Signs Temp Pulse Resp BP Pulse Ox 01/30/23 01:00 90 14 154/69 97 01/29/23 20:21 81 16 141/62 95 01/29/23 19:00 79 30 H 143/82 01/29/23 18:00 73 19 143/54 01/29/23 17:03 79 25 H 01/29/23 16:30 98.4 F 57 L 18 81/48 99 Intake and Output 01/29/23 01/29/23 01/30/23 14:59 22:59 06:59 Other: Weight 65.771 kg Results CBC & Chem 7: 01/29/23 18:07 01/29/23 18:07 Labs: Abnormal Lab Results - Last 24 Hours (Table) 01/29/23 01/29/23 01/30/23 Range/Units 18:07 18:07 00:30 WBC 19.3 H (3.8-10.6) k/uL Neutrophils # 17.4 H (1.3-7.7) k/uL Lymphocytes # 0.8 L (1.0-4.8) k/uL Sodium 136 L (137-145) mmol/L BUN 23 H (9-20) mg/dL Glucose 112 H (74-99) mg/dL Urine Protein 1+ H (Negative) Urine Ketones 2+ H (Negative) Hyaline Casts 4 H (0-2) /lpf Urine Mucus Rare H (None) /hpf
[2023-01-30 08:43] VITALS: PULSE 89
[2023-01-30] MEDS ORDERED: EZETIMIBE 10 MG TAB PO SCH (11:45)
[2023-01-30] MEDS ORDERED: amLODIPine 5 MG TAB PO SCH (11:45)
[2023-01-30] MEDS ORDERED: FOLIC ACID 1 MG TAB PO SCH (11:45)
[2023-01-30] MEDS ORDERED: MEMANTINE 10 MG TAB PO SCH (11:45)
[2023-01-30] MEDS ORDERED: APIXABAN 2.5 MG TABLET PO SCH (11:45)
[2023-01-30] MEDS ORDERED: [UNRECOGNIZED DRUG - OTHER] BOTH EYES SCH (11:45)
[2023-01-30] MEDS ORDERED: SODIUM CHLORIDE 0.9% 500 ML 500 ML IV ONE (11:53)
[2023-01-30] MEDS ORDERED: PANTOPRAZOLE 40 MG TABLET PO SCH (12:00)
[2023-01-30] MEDS ORDERED: prednisoLONE ACETATE 1% OPHTH DROPS 5 ML BTL BOTH EYES SCH (12:00)
[2023-01-30 12:09] LABS: HCT 42.9 % (39.0-53.0); HGB 13.4 gm/dL (13.0-17.5); MCH 31.4 pg (25.0-35.0); MCHC 31.3 g/dL (31.0-37.0); MCV 100.4 fL (80.0-100.0); Mean Platelet Volume 7.9; Platelet Count 268 k/uL (150-450); RBC 4.28 m/uL (4.30-5.90); RDW 12.9 % (11.5-15.5); WBC 17.2 k/uL (3.8-10.6)
[2023-01-30 12:22] LABS: ALT 16 U/L (4-49); AST 23 U/L (17-59); African American GFR (CKD) >90 (>60 ml/min/1.73 sqM); Albumin 3.7 g/dL (3.5-5.0); Albumin/Globulin Ratio 1.5; Alkaline Phosphatase 63 U/L (38-126); Anion Gap 10 mmol/L; Blood Urea Nitrogen 21 mg/dL (9-20); Calcium 9.5 mg/dL (8.4-10.2); Carbon Dioxide 23 mmol/L (22-30); Chloride 103 mmol/L (98-107); Globulin 2.5 g/dL; Glucose 109 mg/dL (74-99); Non-African American GFR(CKD) 82 (>60 ml/min/1.73 sqM); Potassium 4.5 mmol/L (3.5-5.1); Sodium 136 mmol/L (137-145); Total Bilirubin 1.1 mg/dL (0.2-1.3); Total Protein 6.2 g/dL (6.3-8.2)
[2023-01-30 14:42] VITALS: BP 120/68; RESP 18; TEMP 97.9
[2023-01-30] MEDS ORDERED: FERROUS SULFATE 325 MG TAB PO SCH (17:30)
--- NOTE | 2023-01-30 19:07 | P.PN ---
Subjective Progress Note Date: 01/30/23 Discharge Diagnosis: Generalized weakness with mechanical fall Leukocytosis, believed to be reactive no signs of infection and improving. Advanced dementia Paroxysmal atrial fibrillation History of CAD Hypertension Hyperlipidemia Hospital Course: Patient is a pleasant 87-year-old male who is a resident of [facility] who presented to the emergency department overnight secondary to generalized weakness and a mechanical fall. He underwent full evaluation in the emergency department. Labs completed and reviewed. CBC showing leukocytosis with WBC count of 19.3, coagulation profile normal findings. BMP showing sodium 136, prerenal azotemia with BUN of 29, and glucose of 112. Liver profile was unremarkable. Urinalysis was negative for infection. CT head and cervical spine completed. CT head showing age-related atrophic and chronic small vessel ischemic changes negative for acute intercranial process. CT cervical spine showing no evidence for fracture or subluxation of the cervical spine. CT abdomen and pelvis showing urinary bladder wall thickening, sigmoid diverticulos is without diverticulitis, and negative for acute intra-abdominal inflammatory process. Patient was admitted to observation unit under our services with consultation to physical and occupational therapy. Upon reevaluation patient's at bedside requesting discharge back to [facility] as patient is known to have severe delirium anytime he has taken away from his normal routine. Patient is currently free from any complaints of pain showing no signs of illness. Repeat labs does show continued leukocytosis however improving. Discussed this with and again she requests discharge back to nursing facility. Medically, patient is stable showing no signs of acute distr ess. He was evaluated by physical and occupational therapy and is at his baseline walking with a walker. Patient being discharged at this time to follow-up with PCP in 1-2 days. Patient seen and examined at bedside, denied pain or complaints and showed no signs of acute distress. Vital signs reviewed and stable. General: Nontoxic, no distress and appears stated age. Thin and frail. Derm: Skin warm and dry, normal coloration for ethnicity. Head: Atraumatic, normocephalic and symmetric. Eyes: EOMs intact, no lid lag, and anicteric sclera Mouth: no lip lesions, mucus membranes moist Cardiovascular: regular rate and rhythm with normal S1S2, systolic murmur, positive posterior tibial pulses bilaterally, and cap refill < 2 seconds. Lungs: Respirations even, regular, and unlabored on room air. Lungs CTA bilaterally, no rhonchi, no rales, no wheezing, and no accessory muscle usage. Abdominal: soft, nontender to palpation, no guarding, no appreciable organomegaly Ext: ROM intact. No gross muscle atrophy, no edema, no contractures Neuro: Speech clear, face symmetrical and CN II-XII grossly intact with no noted focal neuro deficits Psych: Alert and oriented to person only, pleasant and cooperative. A total of 33 minutes of time were spent preparing [facility] was discharged on 01/30/23 at 2:40 PM. Patient was seen independently by Nurse Practitioner. This document was prepared using [employer] dictation software. Please allow for errors in registered clinical dietitian while rare they do occur. Anderson Downing NP rendered care for this patient independently, reviewed the findings and plan as documented in the note above. I did not physically speak with or examine the patient on this date. Objective - Vital Signs Vital signs: Vital Signs Temp 97.4 F L 01/30/23 08:12 Pulse 89 01/30/23 08:12 Resp 16 01/30/23 08:12 BP 146/67 01/30/23 08:12 Pulse Ox 96 01/30/23 08:12 FiO2 Intake & Output 01/29/23 01/30/23 01/30/23 18:59 06:59 18:59 Intake Total 90 Balance 90 Weight 65.771 kg Intake: Oral 90 Other: Voiding Method External Catheter - Labs CBC & Chem 7: 01/30/23 11:54 01/30/23 11:54 Labs: Abnormal Lab Results - Last 24 Hours (Table) 01/29/23 01/29/23 01/30/23 Range/Units 18:07 18:07 00:30 WBC 19.3 H (3.8-10.6) k/uL Neutrophils # 17.4 H (1.3-7.7) k/uL Lymphocytes # 0.8 L (1.0-4.8) k/uL Sodium 136 L (137-145) mmol/L BUN 23 H (9-20) mg/dL Glucose 112 H (74-99) mg/dL Urine Protein 1+ H (Negative) Urine Ketones 2+ H (Negative) Hyaline Casts 4 H (0-2) /lpf Urine Mucus Rare H (None) /hpf
[2023-01-30] MEDS ORDERED: NON FORMULARY DRUG (Mirabegron [Myrbetriq] 50 MG Tab.Er.24h) PO SCH (21:00)
[2023-01-30] MEDS ORDERED: DONEPEZIL 10 MG TAB PO SCH (21:00)
[2023-01-30] MEDS ORDERED: ATORVASTATIN 20 MG TAB PO SCH (21:00)
[2023-01-30] MEDS ORDERED: NEOMYCIN-POLYMYXIN-DEXAMETH OINT 3.5 GM TUBE LEFT EYE SCH (21:00)
== END 2023-01-30 15:25 | disposition home health service (06) ==
LOC: EC 15:52 → 6NMEDSUR 01-30 02:02
PROVIDERS: ADMIT Internal Medicine; ATTEND Internal Medicine
DX: R52 Pain, unspecified (principal); E78.5 Hyperlipidemia, unspecified; E86.0 Dehydration; F03.90 Unspecified dementia, unspecified severity, without behavioral disturbance, psychotic disturbance, mood disturbance, and anxiety; F17.200 Nicotine dependence, unspecified, uncomplicated; I10 Essential (primary) hypertension; I25.10 Atherosclerotic heart disease of native coronary artery without angina pectoris; I48.0 Paroxysmal atrial fibrillation; R62.7 Adult failure to thrive; S09.90XA Unspecified injury of head, initial encounter; W01.0XXA Fall on same level from slipping, tripping and stumbling without subsequent striking against object, initial encounter; Y92.002 Bathroom of unspecified non-institutional (private) residence as the place of occurrence of the external cause; Y93.01 Activity, walking, marching and hiking; Z79.01 Long term (current) use of anticoagulants; Z79.899 Other long term (current) drug therapy
CPT/HCPCS: 99285; 36415; 93005; 97162; 80053 ×2; 85025; 85027; 85610; 85730; 81001; 72125; 70450; 74176; G0378